=== PATIENT | male | born 1950 | race Caucasian/White ===

== ENCOUNTER 2022-09-09 08:20 | Emergency (ER) | payer MEDICAID ==
[~2022-09-09] VITALS: Ht 175.3 cm; Wt 83.9 kg
[2022-09-09 08:35] VITALS: BP_SYST 201
--- NOTE | 2022-09-09 08:45 | NUR ---
ER at bedside examining patient.
--- NOTE | 2022-09-09 08:45 | NUR ---
BROUGHT BACK TO BED #2 AND REPORT GIVEN TO VERONICA
[2022-09-09 09:03] LABS: BASOPHILS % (AUTO) 0.4 % (0.0-2.0); EOSINOPHILS # (AUTO) 0.5 K/uL (0.0-0.4); EOSINOPHILS % (AUTO) 6.2 % (0.0-4.0); HEMATOCRIT 41.1 % (36-54); HEMOGLOBIN 14.1 g/dL (14.0-18.0); LYMPHOCYTES # (AUTO) 1.7 K/uL (1.0-5.5); LYMPHOCYTES % (AUTO) 22.8 % (20.5-51.5); MEAN CORPUSCULAR HEMOGLOBIN 31 pg (27-31); MEAN CORPUSCULAR HGB CONC 34 % (32-36); MEAN CORPUSCULAR VOLUME 91 fL (79.0-98.0); MONOCYTES # (AUTO) 0.8 K/uL (0.0-1.0); MONOCYTES % (AUTO) 10.7 % (1.7-9.3); NEUTROPHILS # (AUTO) 4.5 K/uL (1.8-7.7); NEUTROPHILS % (AUTO) 59.9 % (40.0-70.0); PLATELET COUNT (AUTO) 258 K/uL (130-430); RED BLOOD CELL COUNT(AUTO) 4.52 MIL/uL (4.2-6.2); RED CELL DISTRIBUTION WIDTH 13.5 % (9.0-15.0); WHITE BLOOD COUNT (AUTO) 7.5 K/uL (4.8-10.8)
[2022-09-09 09:17] LABS: ANION GAP 6 (5-15); CALCIUM 9.4 mg/dL (8.4-11.0); CHLORIDE 97 mmol/L (98-107); GLUCOSE 106 mg/dL (70-99); UREA NITROGEN, BLOOD 11 mg/dL (8-21)
[2022-09-09 09:24] LABS: ALANINE AMINOTRANSFERASE 36 U/L (12-78); ALBUMIN 3.8 g/dL (3.4-4.8); ASPARTATE AMINOTRANSFERASE 72 U/L (10-37)
--- NOTE | 2022-09-09 09:28 | NUR ---
Pt BIB family C/O chest pain Pt resting comfortably in bed AOX4 VSS Able to make needs known VSS family at bedside Will continue to monitor
[2022-09-09] MEDS ORDERED: MORPHINE 2 MG/ML INJ. SYRINGE IVP ONE (09:30)
[2022-09-09] MEDS ORDERED: ASPIRIN 325 MG TABLET PO ONE (09:30)
[2022-09-09] MEDS ORDERED: ENOXAPARIN SODIUM 80 MG/0.8 ML SYRINGE SUBCUT ONE (10:15)
[2022-09-09] MEDS ORDERED: cloNIDine HCL 0.1 MG TABLET PO ONE (11:00)
--- NOTE | 2022-09-09 12:25 | NUR ---
Gave report to [facility]
--- NOTE | 2022-09-09 12:25 | NUR ---
Patient to be transferred to [facility]. Is being transferred due to higher level of care. Receiving facility has accepting physician and available space. ER physician has signed transfer form. Patient or responsible constitution party has agreed to transfer and signed form. Patient belongings inventoried and will be sent with patient. Copy of nursing notes, lab reports, EKG, Physicians Orders and X-rays to be sent with patient. Report called to Jeri at receiving facility. ambulance service has been called for transfer.
[2022-09-09 12:26] VITALS: BP_SYST 130
== END 2022-09-09 12:25 | disposition short-term general hospital (02) ==
LOC: SED 08:20
DX: I21.3 ST elevation (STEMI) myocardial infarction of unspecified site (principal); R07.2 Precordial pain; I10 Essential (primary) hypertension; Z79.899 Other long term (current) drug therapy
CPT/HCPCS: 99285; 96374; 71045; 80053; 85025; 84484; 36415; 93005; 96372; J1650; J2270